=== PATIENT | female | born 1985 | race Caucasian/White ===

== ENCOUNTER 2017-09-07 10:28 | Outpatient (CLI) | payer MEDICAID | END 2017-09-07 12:30 | disposition home or self-care (01) | LOC: OBT 10:28 → L-D 10:28 → OBT 12:30 | DX: O26.892 Other specified pregnancy related conditions, second trimester (principal); R10.9 Unspecified abdominal pain; Z3A.27 27 weeks gestation of pregnancy | CPT/HCPCS: 76815; 76818 ==